=== PATIENT | female | born 1935 | race Caucasian/White ===

== ENCOUNTER 2024-05-15 19:30 | Inpatient (IN) | payer MEDICARE, OTHER ==
[~2024-05-15] VITALS: Ht 160 cm; Wt 50.6 kg
[2024-05-15 20:00] VITALS: BP 135/67; TEMP 98.4; O2SAT 97
[2024-05-15] MEDS ORDERED: REMEDY ESSENTIAL ZINC PASTE 113 GM TOP PRN (20:15)
[2024-05-15] MEDS ORDERED: GABA-532 PO (21:43)
[2024-05-15] MEDS ORDERED: BISA5TAB13 PO (21:43)
[2024-05-15] MEDS ORDERED: BRIM5DRO5 EACHEYE (21:43)
[2024-05-15] MEDS ORDERED: OXYC-131 PO (21:43)
[2024-05-15] MEDS ORDERED: SENN-18 PO (21:43)
[2024-05-15] MEDS ORDERED: AMLO-212 PO (21:43)
[2024-05-15] MEDS ORDERED: METF-440 PO (21:43)
[2024-05-15] MEDS ORDERED: LEVO25TA9 PO (21:43)
[2024-05-15] MEDS ORDERED: POLY17PO4 PO (21:43)
[2024-05-15] MEDS ORDERED: ACET325C7 PO (21:43)
[2024-05-15] MEDS ORDERED: CHOL2000 PO (21:43)
[2024-05-15] MEDS ORDERED: HOME MED MISCELLANEOUS XX SCH ×3 (22:45)
[2024-05-15] MEDS: OXYCODONE/APAP 5-325 MG TABLET PO PRN (23:07)
[2024-05-16] MEDS: LEVOTHYROXINE SODIUM 25 MCG TABLET PO SCH (06:46)
[2024-05-16 06:52] VITALS: BP 160/72; TEMP 97.9; O2SAT 98
[2024-05-16] MEDS: MIRALAX 17 GM POWD.PACK PO SCH (08:48)
[2024-05-16] MEDS: BISACODYL 5 MG TABLET.DR PO SCH (08:48)
[2024-05-16] MEDS: METFORMIN HCL 500 MG TABLET PO SCH (08:48)
[2024-05-16] MEDS: BRIMONIDINE 0.2% OPHT DROP 10 ML BOTTLE EACHEYE SCH (08:48)
[2024-05-16] MEDS: SENNOSIDES 1 TABLET PO SCH (08:49)
[2024-05-16] MEDS: CHOLECALCIFEROL 1,000 UNIT TABLET PO SCH (08:49)
[2024-05-16] MEDS: AMLODIPINE 5 MG TABLET PO SCH (08:49)
[2024-05-16] MEDS ORDERED: DEXTROSE 50% 50 ML DISP.SYRIN IV PRN (11:15)
[2024-05-16] MEDS: BLOOD SUGAR DIAGNOSTIC 1 EACH STRIP VI SCH (11:46)
[2024-05-16] MEDS: INSULIN REGULAR, HUMAN 1000 UNIT/10 ML VIAL SQ PRN (11:50)
[2024-05-16] MEDS ORDERED: BENZOCAINE ORAL CARE 12 ML BOTTLE MM PRN (13:15)
[2024-05-16] MEDS ORDERED: METF-494 PO (15:08)
[2024-05-16 15:30] VITALS: BP 140/68; TEMP 98.2; O2SAT 96
[2024-05-16] MEDS ORDERED: ATOR20TA PO (16:55)
[2024-05-16] MEDS: ENOXAPARIN SODIUM 40 MG/0.4 ML DISP.SYRIN SQ SCH (18:37)
[2024-05-16 19:54] VITALS: BP 125/54; TEMP 98.5
[2024-05-16] MEDS: GABAPENTIN 100 MG CAPSULE PO SCH (20:19)
[2024-05-16] MEDS: ATORVASTATIN 20 MG TABLET PO SCH (20:19)
[2024-05-16] MEDS: ACETAMINOPHEN 500 MG TABLET PO PRN (22:54)
[2024-05-17] MEDS: PANTOPRAZOLE SODIUM 40 MG TABLET.DR PO SCH (06:37)
[2024-05-17 07:06] LABS: BASOPHILS % (AUTO) 0.3 % (0.0-2.0); EOSINOPHILS # (AUTO) 0.2 K/uL (0.0-0.7); EOSINOPHILS % (AUTO) 2.2 % (0.0-7.0); HEMATOCRIT 29.2 % (31.2-41.9); HEMOGLOBIN 9.7 g/dL (10.9-14.3); LYMPHOCYTES # (AUTO) 1.1 K/uL (0.8-4.8); LYMPHOCYTES % (AUTO) 10.1 % (20.5-51.5); MEAN CORPUSCULAR HEMOGLOBIN 26.7 uug (24.7-32.8); MEAN CORPUSCULAR HGB CONC 33 g/dL (32.3-35.6); MEAN CORPUSCULAR VOLUME 80.9 fL (75.5-95.3); MONOCYTES % (AUTO) 8.9 % (0.0-11.0); NEUTROPHILS # (AUTO) 8.9 K/uL (1.8-8.9); NEUTROPHILS % (AUTO) 78.5 % (38.5-71.5); PLATELET COUNT (AUTO) 302 K/uL (179-408); RED BLOOD CELL COUNT(AUTO) 3.61 MIL/uL (3.63-4.92); RED CELL DISTRIBUTION WIDTH 13.3 % (12.3-17.7); WHITE BLOOD COUNT (AUTO) 11.3 K/uL (3.8-11.8)
[2024-05-17 07:17] LABS: CALCIUM 8.6 mg/dL (8.5-10.1); CARBON DIOXIDE 29 mmol/L (21-32); CHLORIDE 95 mmol/L (98-107); CREATININE 0.7 mg/dL (0.6-1.3); GLUCOSE 159 mg/dL (74-106); POTASSIUM 4.1 mmol/L (3.5-5.1); SODIUM SERUM 131 mmol/L (136-145); UREA NITROGEN, BLOOD 14 mg/dL (7-18)
[2024-05-17 07:20] LABS: DIFFERENTIAL COMMENT 1
[2024-05-17 08:45] VITALS: BP_SYST 104; BP_SYST 110; BP_SYST 83; BP_DIAS 50; BP_DIAS 53; BP_DIAS 67; O2SAT 96
[2024-05-17 11:54] VITALS: BP 119/53; TEMP 98.4; O2SAT 96
[2024-05-17 15:19] VITALS: BP 134/54; TEMP 98.5; O2SAT 97
[2024-05-17] MEDS ORDERED: ENOXAPARIN SODIUM 40 MG/0.4 ML DISP.SYRIN SQ SCH (17:00)
[2024-05-17] MEDS: OXYCODONE HCL 5 MG TABLET PO SCH (17:00)
[2024-05-17 20:23] VITALS: BP 133/67; TEMP 98.5; O2SAT 97
[2024-05-18 04:06] VITALS: BP 150/64; TEMP 98.4; O2SAT 94
[2024-05-18] MEDS: GLUCERNA SHAKE 237 ML CAN PO SCH (14:36)
[2024-05-18 16:31] VITALS: BP 112/53; TEMP 98.9; O2SAT 95
[2024-05-18 20:39] VITALS: BP 159/62; TEMP 98.3; O2SAT 96
[2024-05-19 06:30] VITALS: BP 152/79; TEMP 97.8; O2SAT 95
[2024-05-19 16:06] VITALS: BP 130/56; TEMP 98.4; O2SAT 96
[2024-05-19 21:26] VITALS: BP 131/74; TEMP 98.2; O2SAT 100
[2024-05-20 05:24] VITALS: BP 126/74; TEMP 98.2; O2SAT 100
[2024-05-20 16:00] VITALS: BP 138/60; TEMP 98.2; O2SAT 98
[2024-05-20 19:50] LABS: *SODIUM RNDM,URINE 36 mmol/L (40-220)
[2024-05-20 20:23] VITALS: BP 125/52; TEMP 98.3; O2SAT 96
[2024-05-21 04:30] VITALS: BP 154/72; TEMP 98.2; O2SAT 97
[2024-05-21 07:19] LABS: CARBON DIOXIDE 30 mmol/L (21-32); CHLORIDE 97 mmol/L (98-107); CREATININE 0.7 mg/dL (0.6-1.3); GLUCOSE 148 mg/dL (74-106); MAGNESIUM 1.8 mg/dL (1.8-2.4); PHOSPHOROUS 4.1 mg/dL (2.5-4.9); POTASSIUM 4.7 mmol/L (3.5-5.1); SODIUM SERUM 130 mmol/L (136-145); UREA NITROGEN, BLOOD 14 mg/dL (7-18)
[2024-05-21 16:00] VITALS: BP 106/52; TEMP 97.8; O2SAT 97
[2024-05-21 16:35] LABS: URIC ACID 3.9 mg/dL (2.6-6.0)
[2024-05-21 16:58] LABS: THYROID STIMULATING HORMONE 4.034 mIU/mL (0.358-3.740)
[2024-05-21 20:00] VITALS: BP 148/65; TEMP 98.7; O2SAT 95
[2024-05-22 06:00] VITALS: BP 168/63; TEMP 98.3; O2SAT 99
[2024-05-22 15:59] VITALS: BP 128/59; TEMP 98.9; O2SAT 95
[2024-05-22 20:00] VITALS: BP 111/63; TEMP 97.4; O2SAT 96
[2024-05-23 06:00] VITALS: BP 159/68; TEMP 98.6; O2SAT 96
[2024-05-23 18:00] VITALS: BP 153/63; TEMP 97.8; O2SAT 97
[2024-05-23 20:00] VITALS: BP 150/64; TEMP 97.7; O2SAT 97
[2024-05-24 06:32] VITALS: BP 146/68; TEMP 98.2; O2SAT 96
[2024-05-24 07:16] LABS: BASOPHILS # (AUTO) 0.1 K/UL (0.0-0.2); BASOPHILS % (AUTO) 0.5 % (0.0-2.0); EOSINOPHILS # (AUTO) 0.4 K/uL (0.0-0.7); HEMATOCRIT 29.9 % (31.2-41.9); HEMOGLOBIN 9.8 g/dL (10.9-14.3); LYMPHOCYTES # (AUTO) 1.5 K/uL (0.8-4.8); LYMPHOCYTES % (AUTO) 12.9 % (20.5-51.5); MEAN CORPUSCULAR HEMOGLOBIN 26.5 uug (24.7-32.8); MEAN CORPUSCULAR HGB CONC 33 g/dL (32.3-35.6); MEAN CORPUSCULAR VOLUME 80.7 fL (75.5-95.3); MONOCYTES # (AUTO) 0.9 K/uL (0.1-1.30); MONOCYTES % (AUTO) 7.7 % (0.0-11.0); NEUTROPHILS % (AUTO) 75.9 % (38.5-71.5); PLATELET COUNT (AUTO) 427 K/uL (179-408); RED BLOOD CELL COUNT(AUTO) 3.71 MIL/uL (3.63-4.92); RED CELL DISTRIBUTION WIDTH 13.1 % (12.3-17.7); WHITE BLOOD COUNT (AUTO) 11.9 K/uL (3.8-11.8)
[2024-05-24 07:25] LABS: DIFFERENTIAL COMMENT 1
[2024-05-24 07:40] LABS: ALANINE AMINOTRANSFERASE 19 U/L (14-59); ALBUMIN 2.5 g/dL (3.4-5.0); ALKALINE PHOSPHATASE 154 U/L (50-136); ASPARTATE AMINOTRANSFERASE 8 U/L (15-37); BILIRUBIN,TOTAL 0.5 mg/dL (0.2-1.0); CALCIUM 8.4 mg/dL (8.5-10.1); CARBON DIOXIDE 28 mmol/L (21-32); CHLORIDE 98 mmol/L (98-107); CREATININE 0.8 mg/dL (0.6-1.3); GLUCOSE 145 mg/dL (74-106); PHOSPHOROUS 4.5 mg/dL (2.5-4.9); POTASSIUM 4.3 mmol/L (3.5-5.1); SODIUM SERUM 130 mmol/L (136-145); TOTAL PROTEIN, SERUM 6.3 g/dL (6.4-8.2); UREA NITROGEN, BLOOD 11 mg/dL (7-18)
[2024-05-24 07:41] LABS: THYROID STIMULATING HORMONE 3.389 mIU/mL (0.358-3.740)
[2024-05-24 16:21] VITALS: BP 132/59; TEMP 98.6; O2SAT 97
[2024-05-24 16:22] LABS: IRON, SERUM 32 ug/dL (50-175)
[2024-05-24 16:26] LABS: CHOLESTEROL 168 mg/dL (<200); HDL CHOLESTEROL 60 mg/dL (40-60); TRIGLYCERIDES 101 MG/DL (30-150)
[2024-05-24 20:38] VITALS: BP 151/61; TEMP 98.1; O2SAT 97
[2024-05-25 06:00] VITALS: BP 164/72; TEMP 97.3; O2SAT 95
[2024-05-25] MEDS: ASPIRIN EC 81 MG TABLET.DR PO SCH (08:22)
[2024-05-25 16:20] VITALS: BP 134/60; TEMP 97.9; O2SAT 98
[2024-05-25 19:36] VITALS: BP 139/48; TEMP 98.5; O2SAT 94
[2024-05-26 06:15] VITALS: BP 155/75; TEMP 98.4; O2SAT 96
[2024-05-26] MEDS: PROTEIN SUPPLEMENT (PROSTAT) 30 ML LIQUID PO SCH (12:06)
[2024-05-26] MEDS: VALSARTAN 40 MG TABLET PO SCH (12:06)
[2024-05-26] MEDS: FERROUS GLUCONATE 324 MG TABLET PO SCH (12:57)
[2024-05-26 15:12] LABS: *BILIRUBIN,URIN NEGATIVE (NEGATIVE); *BLOOD, URINE NEGATIVE (NEGATIVE); *CLARITY,URINE CLEAR (CLEAR); *COLOR,URINE YELLOW (YELLOW); *KETONES,URINE TRACE (NEGATIVE); *PROTEIN,URINE NEGATIVE (NEGATIVE); *UROBILINOGEN,URINE 0.2 E.U./dl (NORMAL); LEUKOCYTE ESTERASE ,URINE NEGATIVE (NEGATIVE); NITRITE, URINE NEGATIVE (NEGATIVE); PH,URINE 5.5 (5.0-8.0); UGLUCOSE NEGATIVE (NEGATIVE)
[2024-05-26 15:27] LABS: RBC,URINE 0-3 /HPF (0-3)
[2024-05-26 15:28] LABS: BACTERIA,URINE FEW /HPF (NONE SEEN); SQUAMOUS EPITHELIAL CELL,UR MODERATE /HPF (NONE SEEN)
[2024-05-26 16:02] VITALS: BP 117/53; TEMP 98; O2SAT 98
[2024-05-26 20:00] VITALS: BP 104/46; TEMP 98.1; O2SAT 97
[2024-05-26 23:12] LABS: *OCCULT BLOOD STOOL NEGATIVE (NEGATIVE)
[2024-05-27 06:00] VITALS: BP 149/74; TEMP 97.8; O2SAT 96
[2024-05-27 07:38] LABS: BASOPHILS # (AUTO) 0.1 K/UL (0.0-0.2); BASOPHILS % (AUTO) 0.6 % (0.0-2.0); EOSINOPHILS # (AUTO) 0.3 K/uL (0.0-0.7); EOSINOPHILS % (AUTO) 2.1 % (0.0-7.0); HEMATOCRIT 32.5 % (31.2-41.9); HEMOGLOBIN 10.7 g/dL (10.9-14.3); LYMPHOCYTES # (AUTO) 1.5 K/uL (0.8-4.8); LYMPHOCYTES % (AUTO) 12.4 % (20.5-51.5); MEAN CORPUSCULAR HEMOGLOBIN 26.6 uug (24.7-32.8); MEAN CORPUSCULAR HGB CONC 33 g/dL (32.3-35.6); MEAN CORPUSCULAR VOLUME 80.9 fL (75.5-95.3); MONOCYTES # (AUTO) 0.7 K/uL (0.1-1.30); MONOCYTES % (AUTO) 5.9 % (0.0-11.0); NEUTROPHILS # (AUTO) 9.5 K/uL (1.8-8.9); PLATELET COUNT (AUTO) 458 K/uL (179-408); RED BLOOD CELL COUNT(AUTO) 4.02 MIL/uL (3.63-4.92); RED CELL DISTRIBUTION WIDTH 13.7 % (12.3-17.7); WHITE BLOOD COUNT (AUTO) 12.1 K/uL (3.8-11.8)
[2024-05-27 07:52] LABS: DIFFERENTIAL COMMENT 1
[2024-05-27 07:58] LABS: ALANINE AMINOTRANSFERASE 15 U/L (14-59); ALKALINE PHOSPHATASE 181 U/L (50-136); ASPARTATE AMINOTRANSFERASE 5 U/L (15-37); BILIRUBIN,TOTAL 0.6 mg/dL (0.2-1.0); CALCIUM 8.9 mg/dL (8.5-10.1); CARBON DIOXIDE 29 mmol/L (21-32); CHLORIDE 97 mmol/L (98-107); CREATININE 0.8 mg/dL (0.6-1.3); GLUCOSE 153 mg/dL (74-106); MAGNESIUM 1.9 mg/dL (1.8-2.4); PHOSPHOROUS 3.6 mg/dL (2.5-4.9); POTASSIUM 4.1 mmol/L (3.5-5.1); SODIUM SERUM 133 mmol/L (136-145); TOTAL PROTEIN, SERUM 6.8 g/dL (6.4-8.2); UREA NITROGEN, BLOOD 15 mg/dL (7-18)
[2024-05-27 16:00] VITALS: BP 126/53; TEMP 97; O2SAT 100
[2024-05-27 19:33] VITALS: BP 144/60; TEMP 98.2; O2SAT 97
[2024-05-27] MEDS: HYDROCODONE/APAP 5-325MG TABLET PO PRN (22:01)
[2024-05-28 06:05] VITALS: BP 146/68; TEMP 98.1; O2SAT 97
[2024-05-28 08:34] VITALS: BP 146/68
== END 2024-05-28 14:05 | disposition home health service (06) | DRG 560 ==
PROVIDERS: ADMIT Physical Medicine & Rehabilitation Pain Medicine; ATTEND Physical Medicine & Rehabilitation Pain Medicine
DX: S42.401D Unspecified fracture of lower end of right humerus, subsequent encounter for fracture with routine healing (principal); D68.59 Other primary thrombophilia; E44.0 Moderate protein-calorie malnutrition; E87.1 Hypo-osmolality and hyponatremia; S01.81XD Laceration without foreign body of other part of head, subsequent encounter; S42.213D Unspecified displaced fracture of surgical neck of unspecified humerus, subsequent encounter for fracture with routine healing; S02.612D Fracture of condylar process of left mandible, subsequent encounter for fracture with routine healing; E03.9 Hypothyroidism, unspecified; E11.51 Type 2 diabetes mellitus with diabetic peripheral angiopathy without gangrene; E78.5 Hyperlipidemia, unspecified; G89.29 Other chronic pain; I10 Essential (primary) hypertension; J44.9 Chronic obstructive pulmonary disease, unspecified; W01.0XXD Fall on same level from slipping, tripping and stumbling without subsequent striking against object, subsequent encounter; Z88.1 Allergy status to other antibiotic agents; Z85.118 Personal history of other malignant neoplasm of bronchus and lung; Z96.611 Presence of right artificial shoulder joint; D64.9 Anemia, unspecified; E61.1 Iron deficiency; R19.5 Other fecal abnormalities; Z90.2 Acquired absence of lung [part of]; M81.0 Age-related osteoporosis without current pathological fracture; D72.829 Elevated white blood cell count, unspecified; E11.65 Type 2 diabetes mellitus with hyperglycemia; E88.09 Other disorders of plasma-protein metabolism, not elsewhere classified; H40.9 Unspecified glaucoma; M19.90 Unspecified osteoarthritis, unspecified site; Z92.3 Personal history of irradiation
CPT/HCPCS: 36415; 82652; 83550; 83735; 84100; 84300; 84443; 84550; 85025; 93005; 97535-GO-CO; A4663; A6209; A6213; A9150; J1650; J1815